=== PATIENT | female | born 1940 | race Caucasian/White ===

== ENCOUNTER 2023-07-14 15:07 | Emergency (ER) | payer BC, MEDICARE ==
[2023-07-14 15:33] LABS: BASOPHILS ABSOLUTE AUTO 0.01 10^3/uL (0.00-0.10); BASOPHILS PERCENT AUTO 0.1 % (0.0-1.0); EOSINOPHILS ABSOLUTE AUTO 0.02 10^3/uL (0.10-0.30); EOSINOPHILS PERCENT AUTO 0.3 % (1.0-3.0); HEMATOCRIT 46.8 % (37.0-47.0); HEMOGLOBIN 15.4 g/dL (12.0-16.0); IMMATURE GRAN ABSOLUTE AUTO 0.02 10^3/uL (0.00-0.50); IMMATURE GRAN PERCENT AUTO 0.3 % (0.0-5.0); LYMPHOCYTES ABSOLUTE AUTO 2.26 10^3/uL (1.00-4.00); LYMPHOCYTES PERCENT AUTO 28.5 % (20.0-40.0); MEAN CORPUSCULAR HEMOGLOBIN 30.2 pg (27.0-31.0); MEAN CORPUSCULAR HGB CONC 32.9 g/dL (32.0-36.0); MEAN CORPUSCULAR VOLUME 91.8 fL (82.0-92.0); MEAN PLATELET VOLUME 9.9 fL (7.4-10.4); MONOCYTES ABSOLUTE AUTO 0.72 10^3/uL (0.10-0.80); MONOCYTES PERCENT AUTO 9.1 % (2.0-8.0); NEUTROPHILS PERCENT AUTO 61.7 % (50.0-70.0); PLATELET COUNT,PLT 200 10^3/uL (150-400); WHITE BLOOD CELL COUNT,WBC 7.93 10^3/uL (5.00-10.00)
[2023-07-14] MEDS ORDERED: Metoprolol Tartrate 5 MG/5 ML SDV IVPUSH ONE (15:48)
[2023-07-14 15:51] LABS: ALBUMIN 3.39 g/dL (3.40-5.00); ANION GAP 13.7 mmol/L (5-15); BILIRUBIN TOTAL 0.9 mg/dL (0.2-1.0); CALCIUM 8.9 mg/dL (8.7-10.3); CARBON DIOXIDE,CO2 25.5 mmol/L (21.0-32.0); CREATININE 1.18 mg/dL (0.51-1.17); EST CRCL DRUG DOSING (CG) 33.82 mL/min; POTASSIUM,K 4.2 mmol/L (3.5-5.1); PROTEIN TOTAL,TP 7.5 g/dL (6.4-8.2)
[2023-07-14] MEDS ORDERED: Metoprolol Tartrate 25 MG Tab PO ONE (16:51)
[2023-07-14 17:04] VITALS: BP 144/90; PULSE 82
== END 2023-07-14 17:20 | disposition home or self-care (01) ==
LOC: KA.ED 15:07
DX: I48.91 Unspecified atrial fibrillation (principal); I10 Essential (primary) hypertension; Z79.01 Long term (current) use of anticoagulants; Z79.899 Other long term (current) drug therapy; Z88.5 Allergy status to narcotic agent; Z88.8 Allergy status to other drugs, medicaments and biological substances
CPT/HCPCS: 71045; 80053; 83880; 84484; 85025; 96374; 99285; A9270; J3490; 93010; 99284